=== PATIENT | male | born 1960 ===

== ENCOUNTER 2016-11-07 14:23 | Emergency (ER) | payer MEDICAID ==
[2016-11-07 14:55] VITALS: BP 127/61; PULSE 77; RESP 16; TEMP 98.2; O2SAT 100
--- NOTE | 2016-11-07 15:35 | ED PDOC ---
HPI: Psych/Substance Abuse Time Seen by Provider: 11/07/16 15:00 Chief Complaint (Nursing): Psychiatric Evaluation Chief Complaint (Provider): Psychiatric Evaluation History Per: Patient History/Exam Limitations: no limitations Onset/Duration Of Symptoms: Days Current Symptoms Are (Timing): Still Present Suicide/Self Injury Attempted (Context): None Modifying Factor(s): None Severity: None Additional Complaint(s): Patient is a 56 year old male who presents to ED for therapy referral. States that his last session with his current therapist is November 13, his therapist has been trying to contact this hospital to set up an intake appointment since August without any results. States he could not wait for a return phone call any longer so came in today to speak with someone Past Medical History Reviewed: Historical Data, Nursing Documentation, Vital Signs Vital Signs: Last Vital Signs Temp 98.2 F 11/07/16 14:50 Pulse 77 11/07/16 14:50 Resp 16 11/07/16 14:50 BP 127/61 11/07/16 14:50 Pulse Ox 100 11/07/16 14:50 - Medical History PMH: Anxiety, Bipolar Disorder, Bronchitis, Depression Denies: Chronic Kidney Disease - Surgical History Surgical History: No Surg Hx - Family History Family History: States: Unknown Family Hx - Living Arrangements Living Arrangements: With Family - Home Medications Home Medications: Ambulatory Orders Medication Instructions Recorded Divalproex [Depakote DR(*BID*)] 250 mg PO BID 05/26/16 Escitalopram [Lexapro] 10 mg PO Q8H 05/26/16 clonazePAM [clonAZEPAM] 0.5 mg PO DAILY PRN 05/26/16 - Allergies Allergies/Adverse Reactions: Allergies Allergy/AdvReac Type Severity Reaction Status Date / Time No Known Allergies Allergy Verified 11/07/16 14:50 Review of Systems Cardiovascular: Negative for: Chest Pain, Palpitations Respiratory: Negative for: Shortness of Breath Gastrointestinal: Negative for: Nausea, Vomiting Skin: Negative for: Rash Neurological: Negative for: Weakness, Numbness Physical Exam - Reviewed Nursing Documentation Reviewed: Yes Vital Signs Reviewed: Yes - Physical Exam Appears: Positive for: Non-toxic, No Acute Distress Skin: Positive for: Normal Color, Warm. 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 Medical Decision Making Medical Decision Making: Time: 1500 Initial Impression: Bipolar Disorder Initial Plan: -- Will d/w crisis to help arrange appointment Scribe Attestation: Documented by Vilma Michelle, acting as a scribe for [place] PA-C. Provider Scribe Attestation: All medical record entries made by the Scribe were at my direction and personally dictated by me. I have reviewed the chart and agree that the record accurately reflects my personal performance of the history, physical exam, medical decision making, and the department course for this patient. I have also personally directed, reviewed, and agree with the discharge instructions and disposition. Disposition - Clinical Impression Clinical Impression: Bipolar disorder - Patient ED Disposition Is Patient to be Admitted: No - Disposition Disposition: Routine/Home Disposition Time: 16:57 Condition: FAIR Additional Instructions: appointment january 04 Instructions: Bipolar Disorder (ED)
== END 2016-11-07 17:13 | disposition home or self-care (01) ==
LOC: H.ER 14:23
DX: F31.9 Bipolar disorder, unspecified (principal)